=== PATIENT | female | born 1950 | race Caucasian/White ===

== ENCOUNTER 2024-02-27 08:38 | Outpatient (AMB) | payer MEDICARE, BC, SELFPAY ==
--- NOTE | 2024-02-27 09:09 | MHC.OFFWIV ---
Intake Vital Signs 02/27/24 09:11 Weight 101 lb BP 130/80 Blood Pressure Location Lt brachial Position Sitting Pulse 86 Pulse Source Pulse Oximeter Pulse Oximetry (%) 96 Oxygen Delivery Method Room Air Intake Visit Reasons: EP lower back pain Intake Note: Patient here for lower back pain after a fall last week. Patient Tobacco Use Status: Former Tobacco user Allergies NSAIDS (Non-Steroidal Anti-Inflamma Adverse Reaction (Intermediate, Verified 02/27/24 09:12) Hives Do you need a note to return to daycare/school/sports/work: No HPI EP lower back pain HPI Details This note is constructed using voice recognition software. While every effort has been made to ensure accuracy, background check coordinator errors may have been included. The patient is a 73 year old female who presents to the clinic today with sacral pain bilaterally after a fall last week going up the stairs landing on flat rocks. She denies numbness and tingling in her legs. She reports that the pain is worse in her sacrum when she is leaning forward. She has taken Tylenol with some effect as well as heat. She is unable to take NSAIDs due to allergies. She denies reduced range of motion. She is interested in physical therapy in the future, however is not yet established with her primary care provider. She has an appointment with her new primary in June. [facility] Social History Patient Tobacco Use Status: Former Tobacco user Review of Systems Const All systems reviewed & are unremarkable except as noted in HPI and below Physical Exam Vital Signs: Last Vital Signs Pulse 86 02/27/24 09:11 BP 130/80 02/27/24 09:11 Pulse Ox 96 02/27/24 09:11 Oxygen Delivery Method Room Air 02/27/24 09:11 Const General: cooperative, healthy appearing, comfortable, no acute distress and well developed Orientation/consciousness: patient oriented x3 Limitations: no limitations Resp Effort & Inspection: normal respiratory effort and able to speak in complete sentences Back/Spine/Pelvis Other: Tender to palpation in sacrum bilaterally. No erythema, ecchymosis. Full range of motion with the flexion. Negative SLR. Strength 5/5. Distal neurovascular exam intact. Skin General skin exam: no rashes or lesions noted Neuro General: patient oriented x3 Extrem General: Yes normal to inspection Assessment & Plan Assessment & Plan (1) Contusion of sacrum: Code(s): S30.0XXA - Contusion of lower back and pelvis, initial encounter Qualifiers: Encounter type: initial encounter Qualified Code(s): S30.0XXA - Contusion of lower back and pelvis, initial encounter Plan: X-ray ordered to evaluate given trauma in a postmenopausal female. Physical examination likely consistent with musculoskeletal strain. Discussed muscle relaxers versus trial of prednisone for anti-inflammatory effects. We will try a prednisone. Advised follow up as needed with worsening or failure to resolve. Plan See above for full details and plan. Orders: Orders XR sacrum coccyx min 2V Today S30.0XXA - Contusion of lower back and pelvis, initial encounter Medications: New prednisone 40 mg (2 x 20 mg) PO DAILY 6 tabs 0RF 3 days Coding Level of Care Code Est Pt Level 4 (37673) Diagnoses Contusion of sacrum, initial encounter S30.0XXA Encounter type: initial encounter
[2024-02-27 09:11] VITALS: BP 130/80; PULSE 86; O2SAT 96
== END 2024-02-27 10:01 | disposition home or self-care (01) ==
PROVIDERS: Visit Provider Registered Nurse
DX: S30.0XXA Contusion of lower back and pelvis, initial encounter (principal)

== ENCOUNTER → 2024-02-27 08:38 | Outpatient (BNVA) | payer MEDICARE, BC, SELFPAY | PROVIDERS: Visit Provider Registered Nurse ==

== ENCOUNTER 2024-02-27 09:36 | Outpatient (REF) | payer MEDICARE, BC, SELFPAY ==
--- NOTE | ~2024-02-27 | XR_ITS ---
EXAMINATION: XR SACRUM AND COCCYX CLINICAL INFORMATION: Contusion of lower back and pelvis COMPARISON: None available. TECHNIQUE: 2 views of the sacrum and 2 views of the coccyx were obtained. FINDINGS: There are no fractures. No bone, joint or soft tissue abnormality is demonstrated. Incidental note made of spondylosis of the partially visualized lumbosacral spine with a prominent degenerative disc changes and facet arthrosis at the L4 and L4-L5 level. Additional facet arthrosis noted at the L5-S1 level. XR/XR sacrum coccyx min 2V IMPRESSION: 1. No acute abnormality of the sacrum or coccyx. 2. Spondylosis of the partially visualized lumbosacral spine. Electronically signed by: Richard Smith MD 02/27/2024 03:27 PM EDT
== END 2024-02-27 09:37 | disposition home or self-care (01) ==
LOC: HO.HMGCX 09:36
PROVIDERS: Visit Provider Registered Nurse
DX: S30.0XXA Contusion of lower back and pelvis, initial encounter (principal)
CPT/HCPCS: 72220; 99212

== ENCOUNTER 2024-06-25 13:15 | Emergency (ER) | payer MEDICARE, SELFPAY ==
--- NOTE | ~2024-06-25 | CT_ITS ---
EXAMINATION: CT CERVICAL SPINE WITHOUT CONTRAST CLINICAL INFORMATION: Status post fall, unwitnessed. COMPARISON: None available. TECHNIQUE: Contiguous axial images through the cervical spine using 3 mm collimation with bone and soft tissue algorithm. Sagittal and coronal reformatted images acquired. This CT examination was performed using dose optimization techniques as appropriate, variously including the following: *Automated exposure control *Adjustment of mA and/or kV according to patient size (this includes techniques or standardized protocols for targeted exams where dose is matched to indication/reason for exam; i.e. extremities or head) *Use of iterative reconstruction technique DLP: 179.39 mGy centimeter. FINDINGS: Bone marrow inhomogeneity. Multilevel marginal osteophyte formation decreased intervertebral disc height, endplate sclerosis and subchondral cyst formation more conspicuous at C5-6 and to a lesser extent C3-4 C4-5 and C6-7 levels. Grade 1 anterolisthesis C3-4. Grade 1 retrolisthesis C5-6. There is a reverse curvature apex at C4-5 Craniocervical junction is intact. Degenerative changes in the periodontal C1 region. C1 is intact. C2 is intact. C3 is intact. C4 is intact. C5 is intact. C6 is intact. C7 is intact. No gross prevertebral compartment hematoma. Calcified plaques throughout the carotic artery system bilaterally as well as the subclavian arteries. Patchy attenuation right lung apex and to a lesser extent left lung apex. Secretions in the supraglottic. Irregular morphology of the right glottis/true vocal cord CT/CT cervical spine wo IV con IMPRESSION: No acute fracture or trauma-related listhesis. Multilevel cervical spondylosis resulting in [place] deformity. Atherosclerosis disease. Bilateral apical lung scarring. Osteopenia versus osteoporosis versus calcium metabolic disorder versus lymphoproliferative disorder. Secretions, supraglottic and abnormal right true vocal cord. Fleischner guidelines were followed. Electronically signed by: Jerry Laws MD 06/26/2024 08:24 AM [facility]
--- NOTE | ~2024-06-25 | CT_ITS ---
CLINICAL HISTORY: fall concern for rib fractures CT chest without contrast Comparison: None Findings: Acute right lateral 3rd, 4th, and 5th rib fractures are nondisplaced. Acute dorsal left 9th and 10th rib fractures are nondisplaced. Additional mild bilateral rib deformities appear old chronic Mild bibasilar atelectasis and scarring. No pneumothorax or pleural effusion. Additional scarring in the right lung apex with pleural extension. No mediastinal hematoma or significant pleural fluid. Vascular calcifications noted including coronary arteries. Imaged upper abdomen is unremarkable for noncontrast imaging. Soft tissue swelling including ventral soft tissues of the imaged right upper extremity. Acute comminuted fracture of the proximal right humerus with impaction of the major fracture fragments and medial displacement of the major fragment containing the diaphysis. Re-injury is considered given sclerosis of the multiple fragments. Large effusion of the right glenohumeral joint with mild-moderate osteoarthritis and without dislocation. Mild vertebral height losses with multifocal small Schmorl's nodes. IMPRESSION: 1. Acute comminuted proximal right humerus fracture. 2. Acute nondisplaced bilateral lower rib fractures. 3. Bibasilar atelectasis. This document has been electronically signed by: Mik Beauchamp MD on 06/25/2024 22:12:44
--- NOTE | ~2024-06-25 | XR_ITS ---
EXAMINATION: XR SHOULDER, RIGHT CLINICAL INFORMATION: fall, pain COMPARISON: None available. TECHNIQUE: Three views of the right shoulder. FINDINGS: There is an acute comminuted cortical disruption involving the greater tuberosity humeral head and neck. The clavicle is intact. The scapula appears intact. Traumatic deformities in the posterior lateral aspect of the ribs right upper hemithorax without gross callus formation. XR/XR shoulder RT min 2V IMPRESSION: Acute comminuted displaced fracture right humeral head and neck. Fractures posterior lateral ribs right upper hemithorax, probable old. Electronically signed by: Jerry Laws MD 06/25/2024 01:50 PM EST
--- NOTE | ~2024-06-25 | CT_ITS ---
EXAMINATION: CT HEAD WITHOUT CONTRAST CLINICAL INFORMATION: fall, unwitnessed COMPARISON: None available. TECHNIQUE: Contiguous axial imaging was performed from the skull base to vertex without intravenous administration of contrast. This CT examination was performed using dose optimization techniques as appropriate, variously including the following: *Automated exposure control *Adjustment of mA and/or kV according to patient size (this includes techniques or standardized protocols for targeted exams where dose is matched to indication/reason for exam; i.e. extremities or head) *Use of iterative reconstruction technique DLP: 581.37+ 10.25 mGy-cm FINDINGS: Bony calvarium is intact. Skull base is intact. Bone marrow inhomogeneity. No acute intracranial hemorrhage, mass effect, midline shift, hydrocephalus or herniation. Major-white matter differentiation is normal. Bilateral multifocal subtle patchy deep periventricular white matter hypodensity involving centrum semiovale and gonzales radiata. Old lacunar infarcts in the basal ganglia. Prominence of the extra-axial CSF spaces cerebral sulci and ventricles. Posterior cranial fossa contents demonstrated no acute intracranial hemorrhage or gross mass effect. Calcified plaques in the V4 segments of the vertebral arteries and the cavernous supraclinoid segments both ICA. Sellar/suprasellar region demonstrated. Focal 4 mm slightly hyperdense abnormality in the right sella. Craniocervical junction is intact with degenerative changes. 11 mm calcified pineal gland. Mucosal thickening in the paranasal sinuses more conspicuous in the ethmoid air cells. Tympanic cavities and mastoid air cells are aerated. No gross hematoma, intraconal or extraconal compartments of the orbits. CT/CT head/brain wo IV con IMPRESSION: No acute fracture, bony calvarium. No acute intracranial hemorrhage. Atherosclerosis disease, intracranial. Probable small vessel disease. Questionable 4 mm hyperdensity right sella. Electronically signed by: Jerry Laws MD 06/26/2024 08:17 AM [facility]
[2024-06-25 13:20] VITALS: BP 118/70; PULSE 88; O2SAT 99
--- NOTE | 2024-06-25 14:07 | ED.GENADULT ---
HPI - General Adult General Chief complaint: Fall Stated complaint: SLIP+FALL ON ICE,RT SHLDR PAIN,-THIN,-HESHAM,-LOC Time Seen by Provider: 06/25/24 22:19 Source: patient Mode of arrival: EMS Limitations: no limitations History of Present Illness ED Provider: HPI narrative: Apparently patient was walking outside tripped/slipped and fell tried to break the fall with right hand comes here with pain in the right shoulder no head injury no loss of consciousness no other injuries Related Data Home Medications ?Medication ?Instructions ?Recorded ?Confirmed atorvastatin 20 mg tablet 20 mg PO DAILY 02/27/24 levothyroxine 125 mcg capsule 125 mcg PO DAILY 02/27/24 losartan 25 mg tablet 25 mg PO DAILY 02/27/24 Previous Rx's ?Medication ?Instructions ?Recorded prednisone 20 mg tablet 40 mg (2 x 20 mg) PO DAILY 3 days 02/27/24 #6 tabs oxycodone 5 mg tablet 5 mg PO Q8-10H PRN pain #20 tabs 06/25/24 Allergies Allergy/AdvReac Type Severity Reaction Status Date / Time aspirin Allergy Hives Verified 06/25/24 14:08 NSAIDS (Non-Steroidal AdvReac Intermediate Hives Verified 06/25/24 14:08 Anti-Inflamma Review of Systems Review of Systems: Yes all other systems are reviewed and are negative PMFSH Social History Social History Patient Tobacco Use Status: Former Tobacco user Smoked in Last 30 Days: No Use of substances other than those prescribed or required for medical reasons: No Advance Directives: No Advance Directives Information Provided: Yes Do you have a plan to hurt others: No Plan Physical Exam ED Vital Signs: Vital Signs - 24 hr 06/25/24 14:08 06/25/24 21:53 06/25/24 21:53 Temperature 97.2 F 97.5 F 97.5 F Pulse Rate 71 83 80 Respiratory Rate 16 20 20 Blood Pressure 164/102 H 195/107 H 195/107 H Pulse Oximetry 98 94 94 Oxygen Delivery Method Room Air Room Air 06/25/24 23:12 Temperature 97.5 F Pulse Rate 80 Respiratory Rate 20 Blood Pressure 195/107 H Pulse Oximetry 94 Oxygen Delivery Method Room Air BMI result Body Mass Index 17.8 Appearance: Alert. Oriented X3. No acute distress. Eyes: PERRLA, No Nystagmus ENT: Pharynx normal. Oral Mucosa moist atraumatic normocephalic Neck: Normal inspection. Neck supple. No midline tenderness CVS: Normal heart rate and rhythm. Pulses normal. Respiratory: No respiratory distress. Equal air entry bilateral, no wheezing/rales/rhonchi no chest wall tenderness no rib tenderness Abdomen: Soft and nontender. Bowel sounds are present, no mass palpable, no CVA tenderness Skin: Skin warm and dry. Normal skin color. Normal skin turgor. Extremities: No lower extremity edema. No calf tenderness your right shoulder with swelling and tenderness of right humerus head neurovascular intact Neuro: Oriented X 3. No motor deficit. No sensory deficit.No cerebellar signs , cranial nerves II-XII intact Course Course Course Narrative: This is a rapid medical exam performed by Ramsey Montague NP: Additional HPI, ROS, PE not included below will be deferred to primary provider. Patient is a 74-year-old female presenting from [facility] with complaint of right shoulder, upper arm pain after a slip and fall on ice prior to arrival. Denies head strike, loss of consciousness. Not anticoagulated. Plan: xray Medications Administered Discontinued Medications Generic Name Dose Route Start Last Admin Trade Name Freq PRN Reason Stop Dose Admin Acetaminophen 650 mg 06/25/24 20:31 06/25/24 20:41 Acetaminophen 325 Mg Tablet PO 06/25/24 20:32 650 mg ONCE ONE Administration Oxycodone HCl 5 mg 06/25/24 22:44 06/25/24 23:16 Oxycodone Hcl Immed Release 5 Mg Tablet PO 06/25/24 22:45 5 mg ONCE ONE Administration Medical Decision Making Medical Decision Making [facility] Narrative: Patient's right humerus head fracture no other injuries CT of the head and C-spine negative Patient denied any pain in the ribs but CT scan showed rib fracture patient is just complaining of pain in the right shoulder area Differential Diagnosis Differential Diagnoses: The differential diagnosis associated with the presentation includes Independent Interpretation I performed an independent interpretation of an: CT Scan Interpretation: [address] [id number] [address] Scan Report Signed Patient: Marianela Yoder MR#: [id number] : 1950 Acct:[id number] Age/Sex: 74 / F ADM Date: 06/25/24 Loc: HO.ED Attending Dr: Ordering Physician: Nancy Irene DO Date of Service: 06/25/24 Procedure(s): CT chest wo IV con Accession Number(s): [id number] cc: Nancy Irene DO; Physician,Unknown ~ Report Number: [id number]: Total DLP = 205.00 mGy-cm CLINICAL HISTORY: fall concern for rib fractures CT chest without contrast Comparison: None Findings: Acute right lateral 3rd, 4th, and 5th rib fractures are nondisplaced. Acute dorsal left 9th and 10th rib fractures are nondisplaced. Additional mild bilateral rib deformities appear old chronic Mild bibasilar atelectasis and scarring. No pneumothorax or pleural effusion. Additional scarring in the right lung apex with pleural extension. No mediastinal hematoma or significant pleural fluid. Vascular calcifications noted including coronary arteries. Imaged upper abdomen is unremarkable for noncontrast imaging. Soft tissue swelling including ventral soft tissues of the imaged right upper extremity. Acute comminuted fracture of the proximal right humerus with impaction of the major fracture fragments and medial displacement of the major fragment containing the diaphysis. Re-injury is considered given sclerosis of the multiple fragments. Large effusion of the right glenohumeral joint with mild-moderate osteoarthritis and without dislocation. Mild vertebral height losses with multifocal small Schmorl's nodes. IMPRESSION: 1. Acute comminuted proximal right humerus fracture. 2. Acute nondisplaced bilateral lower rib fractures. 3. Bibasilar atelectasis. This document has been electronically signed by: Mik Beauchamp MD on 06/25/2024 22:12:44 Discharge Plan Discharge Clinical Impression: Closed right humeral fracture, Closed rib fracture Patient Disposition: Home, Self-Care Instructions: Arm Fracture in Adults (ED), Rib Fracture (ED), How to Use a Sling (ED) Additional Instructions: Wear the sling for support Oxycodone for severe pain Follow up with orthopedic You have right rib fractures report to the ER if increased shortness a breath or increased pain in the right ribs Prescriptions: New oxycodone 5 mg tablet 5 mg PO Q8-10H PRN (Reason: pain) Qty: 20 0RF Rx Instructions: Partial Fill upon patient request. No Action atorvastatin 20 mg tablet 20 mg PO DAILY losartan 25 mg tablet 25 mg PO DAILY levothyroxine 125 mcg capsule 125 mcg PO DAILY prednisone 20 mg tablet 40 mg PO DAILY 3 Days Qty: 6 0RF Print Language: Grenadian
[2024-06-25 14:08] VITALS: BP 164/102; PULSE 71; RESP 16; TEMP 36.2; O2SAT 98; BMI 17.8
[2024-06-25] MEDS: Acetaminophen 325 MG TABLET 650 MG PO (20:41)
[2024-06-25 21:53] VITALS: BP 195/107; PULSE 80; PULSE 83; RESP 20; TEMP 36.4; O2SAT 94
--- OUTSIDE RECORDS SUMMARY | 2024-06-25 22:14 | XMS_ITS | Clinical Summary ---
Author Organization [address] Address [address] [place] [id number] Phone Care Team Providers Care Hop Weigher Name Role Phone No, Pcp (Do Not Change Name) Primary Care Provid er Unavailable Allergies Active Allergy Reactions Criticality Noted Date Comments Nsaids (Non-Steroidal Anti-I nflammatory Drug) 07/30/2012 Medications levothyroxine (LEVOXYL) 150 MCG tablet Take 150 mcg by mouth daily. 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 Now with new primary buccal SCCA on the Right buccal mucosa. Social History Tobacco Use Types Packs/Day Years Used Date Smoking Tobacco: Former Alcohol Use Standard Drinks/Week Comments Yes 0 (1 standard drink = 0.6 oz pur e alcohol) Comments Unknown Sex and Gender Information Value Date Recorded Sex Assigned at Not on file Legal Sex Female 9:34 AM EST Gender Identity Not on file Sexual Orientation Not on file Last Filed Vital Signs Vital Sign Reading Time Taken Comments Blood Pressure 117/76 08/04/2014 12:58 PM EDT Pulse 87 08/04/2014 12:58 PM EDT Temperature 36.8 ??C (98.3 ??F) 07/30/2012 1:47 PM ED T Respiratory Rate - - Oxygen Saturation 98% 08/04/2014 12: 58 PM EDT Inhaled Oxygen Concentration - - Weight 50.3 kg (110 lb 12.8 oz) 015 12:58 PM EDT Height 162.6 cm (5' 4 ) 07/30/2012 1:47 PM EDT Body Mass Index 19.02 07/30/2012 1:47 PM EDT Plan of Treatment Health Maintenance Due Date Last Done Comments HIV screening 1962 Hepatitis C screening 1967 Lipid disorder screening 1989 Colon cancer screening, Colonoscopy 1994 Diabetes screening 1994 Shingles vaccine (Shingrix) (2 of 2 - Shingrix (RZV) 2 Dose Standard Series) 08/17/2019 06/18/2019 Influenza vaccine 12/05/2023 01/29/2022, , 01/20/2020, Additional history exists Covid-19 vaccine series ( season) 2024 01/05/2021, 06/18/2020, 05/21/2020 RSV Discussion (1 - 1-dose 75+ series) 2024 Tetanus adult (Td q 10,TDAP once) 11/30/2029 12/01/2019, 12/15/2009, 05/06/2002, Additional history exists Pneumococcal Vaccine (50+ years) Completed 12/06/2014, 05/03/2014 Osteoporosis screening (bone density) Completed 02/15/2022, 03/17/2020 Breast cancer screening Discontinued 05/16/19 24, 04/26/2022, 04/06/2021, Additional history exists Cervical cancer screening Discontinued Meningococcal Vaccine Aged Out No donnell jon eligible based on patient's age [place] [address] [facility] MEDICARE MEDICARE MEDICARE MEDICARE Care Teams Hop Weigher Relationship Specialty Start Date End Date No, Pcp (Do Not Change Name) PCP - General 07/30/12
[2024-06-25 23:12] VITALS: BP 195/107; PULSE 80; RESP 20; TEMP 36.4; O2SAT 94
[2024-06-25] MEDS: oxyCODONE HCl Immed Release 5 MG TABLET PO (23:16)
== END 2024-06-25 23:22 | disposition home or self-care (01) ==
PROVIDERS: Emergency Provider Internal Medicine
DX: S42.301A Unspecified fracture of shaft of humerus, right arm, initial encounter for closed fracture (principal); S22.31XA Fracture of one rib, right side, initial encounter for closed fracture; M54.2 Cervicalgia; R07.89 Other chest pain; R51.9 Headache, unspecified; M25.511 Pain in right shoulder; Y99.8 Other external cause status; W01.0XXA Fall on same level from slipping, tripping and stumbling without subsequent striking against object, initial encounter; Y93.01 Activity, walking, marching and hiking; Y92.9 Unspecified place or not applicable; Z79.899 Other long term (current) drug therapy
CPT/HCPCS: 70450; 71250; 72125; 73030; 99284; 99285

== ENCOUNTER → 2024-06-25 13:21 | Outpatient (BNV) | payer MEDICARE, BC, SELFPAY | PROVIDERS: Visit Provider Radiology Diagnostic Radiology | DX: M47.812 Spondylosis without myelopathy or radiculopathy, cervical region (principal); I67.2 Cerebral atherosclerosis | CPT/HCPCS: 70450; 72125 ==

== ENCOUNTER → 2024-08-05 14:48 | Outpatient (BNV) | payer MEDICARE, SELFPAY | PROVIDERS: Visit Provider Internal Medicine Medical Oncology | DX: Z85.528 Personal history of other malignant neoplasm of kidney (principal); Z85.819 Personal history of malignant neoplasm of unspecified site of lip, oral cavity, and pharynx | CPT/HCPCS: 99204 ==

== ENCOUNTER 2024-08-07 10:47 | Outpatient (AMB) | payer MEDICARE, BC, SELFPAY ==
[2024-08-07 10:57] VITALS: BP 130/80; PULSE 87; TEMP 36.6; O2SAT 97
--- NOTE | 2024-08-07 10:57 | AM.OFFWIN_ITS ---
Intake Vital Signs 3 08/07/24 10:57 Height 5 ft 3 in BP 130/80 Blood Pressure Location Lt brachial Position Sitting Pulse 87 Pulse Source Pulse Oximeter Temp 97.8 F Temp Source Oral Pulse Oximetry (%) 97 Oxygen Delivery Method Room Air Intake Visit Reasons: EP-rt hand 2nd finger infection Patient Tobacco Use Status: Former Tobacco user Allergies aspirin Allergy (Verified 08/07/24 10:57) Hives NSAIDS (Non-Steroidal Anti-Inflamma Adverse Reaction (Intermediate, Verified 08/07/24 10:57) Hives Do you need a note to return to daycare/school/sports/work: No HPI EP-rt hand 2nd finger infection 2 HPI0 Details Patient is a 74-year-old female comes to the walk-in clinic complaining of likely infection to her right 4th finger. She has a chronic history of having cuticles that she bites, and pulls off. She reports that she frequently will get inflammation and redness to the area, and sometimes they will look infected. She puts topical ointment on them, and this usually clears them up. However, this last flare up has occurred to her right 4th finger tip, around the base of the fingernail. has been pretty persistent for about a month now, and despite keeping it clean covered and dry and using the topical Neosporin, she now has bumps encircling the tip of the finger, that are sore, and red and swollen surrounding. She denies fever or chills, nausea vomiting or diarrhea, headache or dizziness, or other significant associated symptoms. She is not taking Tylenol or ibuprofen for pain or fever. [facility] Medical History Essential hypertension Malignant tumor of kidney Seasonal affective disorder Malignant neoplasm of buccal mucosa Postoperative hypothyroidism Surgical History H/O partial nephrectomy H/O exploratory laparotomy H/O myomectomy History of laparoscopy-assisted vaginal hysterectomy Family History Sister Bipolar disorder Schizophrenia Maternal Grandfather Lung cancer Sister No problems noted. Mother Depressive disorder Brother Depressive disorder Father Cerebral hemorrhage Social History Household Members: None Patient Tobacco Use Status: Former Tobacco user Tobacco use type: Cigarette service: No Current occupational status: retired Review of Systems Const All systems reviewed & are unremarkable except as noted in HPI and below Physical Exam Vital Signs: Last Vital Signs Temp 97.8 F 08/07/24 10:57 Pulse 87 08/07/24 10:57 BP 130/80 08/07/24 10:57 Pulse Ox 97 08/07/24 10:57 Oxygen Delivery Method Room Air 08/07/24 10:57 Skin Lesions: other (Patient has vesicular lesions to the right 4th finger) Extrem Hand/finger images: 2 1. vescicular lesions with surrounding erythema, mild tenderness to the touch. No warmth to the area, or surrounding edema. 2. Assessment & Plan Assessment & Plan (1) Paronychia of finger: Code(s): L03.019 - Cellulitis of unspecified finger Qualifiers: Laterality: right Qualified Code(s): L03.011 - Cellulitis of right finger (2) Abscess of finger: Code(s): L02.519 - Cutaneous abscess of unspecified hand Qualifiers: Laterality: right Qualified Code(s): L02.511 - Cutaneous abscess of right hand Plan Patient with recurrent paronychia is due to cuticle manipulation. She has developed what looks to be an erythematous inflamed inflammatory paronychia, along with 2 abscesses and circling the fingertip. Not sure if they are bacterial or viral in nature, but I will start her on a course of Keflex and I advised her to take a probiotic along with the antibiotic. He abscesses were incised and drained, and swabs of the drainage was sent out for culture, both bacterial and viral. She was also advised to monitor and follow up if it is not improving, or if it worsens. She knows to go to the emergency department with worrisome symptoms. Orders: Orders 2 Routine Culture w Gram Stain 08/07/24 L02.519 - Cutaneous abscess of unspecified hand, L03.019 - Cellulitis of unspecified finger Viral Culture 08/07/24 L02.519 - Cutaneous abscess of unspecified hand, L03.019 - Cellulitis of unspecified finger Medications: New 2 cephalexin 500 mg PO QID 40 caps 0RF 10 days Coding Level of Care Code Est Pt Level 4 (85366) Diagnoses Paronychia of finger of right hand L03.011 Laterality: right Abscess of finger of right hand L02.511 Laterality: right
--- OUTSIDE RECORDS SUMMARY | 2024-08-07 12:27 | XMS_ITS | Clinical Summary ---
Author Organization [address] Address [address] [place] [phone] Phone Care Team Providers Care Solderer Assembler Name Role Phone No, Pcp (Do Not [...] (RZV) 2 Dose Standard Series) 08/17/2019 06/18/2019 Covid-19 vaccine series ( season) 2024 01/05/2021, 06/18/2020, 05/21/2020 RSV Immunization (1 - 1-dose 75+ series) 2024 Influenza vaccine 01/04/2025 01/29/2022, , 01/20/2020, Additional history exists Tetanus adult (Td q 10,TDAP once) 11/30/2029 12/01/2019, 12/15/2009, 05/06/2002, Additional history exists Pneumococcal Vaccine (50+ years) Completed 12/06/2014, 05/03/2014 Osteoporosis screening (bone density) Completed 02/15/2022, 03/17/2020 Breast cancer screening Discontinued 05/16/19 24, 04/26/2022, 04/06/2021, Additional history exists Cervical cancer screening Discontinued Meningococcal Vaccine Aged Out No donnell jon eligible based on patient's [place] [address] [facility] MEDICARE MEDICARE MEDICARE MEDICARE Care Teams Solderer Assembler Relationship Specialty Start Date End Date No, Pcp (Do Not Change Name) PCP - General 07/30/12
== END 2024-08-07 11:42 | disposition home or self-care (01) ==
PROVIDERS: Visit Provider Physician Assistant Medical
DX: L03.011 Cellulitis of right finger (principal); L02.511 Cutaneous abscess of right hand

== ENCOUNTER 2024-08-07 10:47 | Outpatient (REF) | payer MEDICARE, BC, SELFPAY ==
--- OUTSIDE RECORDS SUMMARY | 2024-08-07 15:04 | XMS_ITS | Clinical Summary ---
Author Organization [address] Address [address] [place] [phone] Phone Care Team Providers Care Hemotherapist Name Role Phone No, Pcp (Do Not [...] age [place] [address] [facility] MEDICARE MEDICARE MEDICARE MEDICARE Care Teams Hemotherapist Relationship Specialty Start Date End Date No, Pcp (Do Not Change Name) PCP - General 07/30/12
[2024-08-17 14:49] LABS: Varicella Zoster Rapid Culture NOT ISOLATED; Varicella Zoster Source SWAB
== END 2024-08-07 10:48 | disposition home or self-care (01) ==
LOC: HO.LNP 10:47
PROVIDERS: Visit Provider Physician Assistant Medical
DX: L03.011 Cellulitis of right finger (principal); L02.511 Cutaneous abscess of right hand
CPT/HCPCS: 10060; 87070; 87077; 87205; 87252; 87254; 99212

== ENCOUNTER 2025-01-16 11:09 | Emergency (ER) | payer MEDICARE, BC, SELFPAY ==
--- NOTE | ~2025-01-16 | CT_ITS ---
CLINICAL HISTORY: head strike, fall CT head without contrast Comparison: CT/SR - HEAD HEAD_CSPINE (ADULT) - 06/25/24 16:53 EST Findings: Involutional change and nonspecific white matter hypodensity. No intracranial mass, midline shift, hydrocephalus, or acute hemorrhage. Orbits, paranasal sinuses, and mastoid air cells are unremarkable. No skull fracture Impression: 1. No acute findings This document has been electronically signed by: Tamara Hammond MD on 01/16/2025 12:50:06
--- NOTE | ~2025-01-16 | XR_ITS ---
CLINICAL HISTORY: weakness 2 view chest x-ray Comparison: CT/SR - CT CHEST WO IV CON - 06/25/24 21:35 EST Findings: There is a bandlike opacity within the right middle lobe. Left lung is clear. There is no pleural effusion. Heart size is normal. Chronic deformity of the right humeral head. No acute displaced fracture. IMPRESSION: There is a bandlike focus of atelectasis within the right middle lobe. This document has been electronically signed by: Tamara Hammond MD on 01/16/2025 12:36:42
--- NOTE | ~2025-01-16 | CT_ITS ---
CLINICAL HISTORY: head strike, fall CT cervical spine without contrast Comparison: CT/SR - HEAD HEAD_CSPINE (ADULT) - 06/25/24 16:53 EST Findings: Trace anterolisthesis of C3 on C4, similar to the prior study. Reversal of lordosis, similar to the prior study. Multilevel degenerative disc disease and facet osteoarthritis. No significant central canal stenosis. No acute fractures or dislocations. No acute findings on limited view of the intracranial contents. Soft tissues of the neck are normal. There is scarring at the bilateral lung apices. IMPRESSION: No acute cervical spine fracture. This document has been electronically signed by: Tamara Hammond MD on 01/16/2025 12:45:59
--- NOTE | ~2025-01-16 | XR_ITS ---
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 Mild arthritic change. Soft tissues are unremarkable. IMPRESSION: 1. No acute findings. This document has been electronically signed by: Tamara Hammond MD on 01/16/2025 13:31:35
[2025-01-16 11:14] VITALS: BP 190/102; PULSE 89; RESP 18; TEMP 36.7; O2SAT 96; BMI 16.2
--- NOTE | 2025-01-16 11:15 | ED.GENADULT ---
HPI - General Adult General Chief complaint: Fall Stated complaint: fall head inj Time Seen by Provider: 01/16/25 11:31 History of Present Illness ED Provider: Silvano Trujillo MD HPI narrative: Marianela is a pleasant 74-year-old female who reports a history of oral cancer, kidney cancer with a partial nephrectomy in the past, hypothyroid due to radiation, who is in a senior care community she tells me she syncopized she does not recall the event but she was in her bathroom she awoke with some mild pain in the left posterior back and a small laceration of the superior forehead this was over 4 days ago. She got herself up and was able to clean herself off and did not seek medical care until now. But she says since that time she has felt slightly off balance mild pain in the left lump lumbosacral let/posterior hip region but she has been able to ambulate. Denies abdominal pain chest pain difficulty breathing. She denies headache or neck pain focal neurologic symptoms. She has a baseline asymmetry of her face due to the prior oral surgery/neck dissection which was remotely she does not feel this is abnormal at all. She feels slightly dry in the oral mucosa and has decreased appetite since the time. Related Data Home Medications ?Medication ?Instructions ?Recorded ?Confirmed atorvastatin 20 mg tablet 20 mg PO DAILY 02/27/24 11/05/24 losartan 25 mg tablet 25 mg PO DAILY 02/27/24 11/05/24 fluoxetine 20 mg tablet 20 mg PO DAILY 08/05/24 11/05/24 levothyroxine 125 mcg tablet 125 mcg PO DAILY 08/07/24 11/05/24 Allergies Allergy/AdvReac Type Severity Reaction Status Date / Time aspirin Allergy Hives Verified 01/16/25 11:15 NSAIDS (Non-Steroidal AdvReac Intermediate Hives Verified 01/16/25 11:15 Anti-Inflamma PMFSH Past Medical History Medical History Essential hypertension Malignant tumor of kidney Seasonal affective disorder 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 Mother Depressive disorder Brother Depressive disorder Father Cerebral hemorrhage Social History Social History Household Members: None Patient Tobacco Use Status: Former Tobacco user Tobacco use type: Cigarette Advance Directives: Yes Advance Directives Information Provided: No Advance Directives on File: No Do you have a plan to hurt others: No Plan service: No Current occupational status: retired Physical Exam ED Exam Exam: EXAM: Gen: Alert, awake, frail thin-appearing dry oral mucosa not toxic or ill Head: Atraumatic Eyes: Anicteric, Normal conjunctiva. ENT: Dry oral mucosa Neck: Supple. Prior right-sided neck dissection scar Skin: ?No observable rash or bruising on exposed or examined skin 3 mm healing laceration with surrounding ecchymosis superior medial forehead Respiratory: Breathing comfortably, No distress.Clear to auscultation bilaterally, symmetric chest expansion, No wheeze, rales, ronchi. Cardiovascular: Regular rate and rhythm. No murmurs or rub. Well perfused periphery, warm extremities. No edema. ? Abdominal: No focal tenderness. Soft, no objective distension. No palpable masses or obvious organomegaly. ?No guarding, no rebound tenderness or other peritoneal findings. : No flank tenderness. Neuro: Alert. Gross movement of all extremities intact. ? Psych: Calm. Cooperative. MSK: No grossly visible deformity. Mild tenderness left lumbosacral area without step-off or overlying skin changes. No midline back tenderness. Joints full range of motion without bony deformity though they are thin. They are well-perfused. Vital signs: See flowsheet Vital Signs: Vital Signs - 24 hr 01/16/25 11:14 01/16/25 13:11 Temperature 98.1 F 97.9 F Pulse Rate 89 83 Respiratory Rate 18 17 Blood Pressure 190/102 H 228/130 H Pulse Oximetry 96 96 Oxygen Delivery Method Room Air Room Air BMI result Body Mass Index 16.2 Course Course Course Narrative: Rapid medical examination performed in triage by Gail Diggs PA-C. Patient is a 74 year old assigned female at presenting to the emergency department with dizziness, headache after a fall 4 days ago. Patient states that 4 days ago she fell and is not sure what happened or how. Detailed physical exam and review of systems are deferred to the office clinician. EKG, labs, imaging, swabs ordered. Patient placed back in the waiting room pending room availability and results. Medications Administered Discontinued Medications Generic Name Dose Route Start Last Admin Trade Name [place] PRN Reason Stop Dose Admin Hydralazine HCl 25 mg 01/16/25 13:16 01/16/25 13:22 Hydralazine Hcl 25 Mg Tablet PO 01/16/25 13:17 25 mg ONCE ONE Administration Protocol Sodium Chloride 1,000 mls @ 999 mls/hr 01/16/25 12:30 01/16/25 14:10 Ns IV 01/16/25 13:30 Infused .Q1H1M DANIEL Infusion Losartan Potassium 25 mg 01/16/25 13:16 01/16/25 13:21 Losartan Potassium 25 Mg Tablet PO 01/16/25 13:17 25 mg ONCE ONE Administration Protocol Medical Decision Making Medical Decision Making MDM Narrative: Medical Decision Makin-year-old female presents for subjective unsteady gait after a fall 4 days ago. She did not seek medical care after that time. She has decreased oral appetite looks frail slightly dehydrated but not ill or toxic. She is afebrile has stable vital signs aside from moderate hypertension. No injuries on imaging. Pt ambulated in ED well at baseline. Hydrated IV due , she was dehydrated. Preliminary Favored Differential Diagnosis: head/neck/pelvic injury, dehydration, vasovagal, orthostasis, deconditioning, micturation syncope among additional considered etiologies Testing Interpreted Independently: ?See below for details Radiology or Lab testing Results Reviewed: ?See below for details Consults: ?See below for details Independent Historians/External Chart Reviews: ?See below for details Social Determinants of Health Impacting MDM/Planning: ?See below for details Lab Data 01/16/25 11:58 01/16/25 11:58 Labs: Lab Results 01/16/25 01/16/25 Range/Units 11:58 14:08 WBC 6.0 (4.8-10.8) X10*3/uL RBC 3.97 L (4.20-5.50) X10*6/uL Hgb 11.9 L (12.0-16.0) g/dl Hct 34.8 L (37.0-47.0) % MCV 87.7 (80.0-98.0) fL MCH 30.0 (27.0-33.0) pg MCHC 34.2 (31.0-35.0) g/dl RDW 13.9 (11.0-16.0) % Plt Count 205 (160-400) X10*3/uL MPV 8.5 L (9.4-12.3) fL Immature Gran % (Auto) 0.3 (0.0-0.4) % Neut % (Auto) 71.3 (45-73) % Lymph % (Auto) 16.3 L (20-40) % [place] % (Auto) 10.5 (2-11) % Eos % (Auto) 1.3 (0-4) % Baso % (Auto) 0.3 (0-2) % Lymph # (Auto) 1.0 L (1.2-4.9) X10*3/uL [place] # (Auto) 0.6 (0.1-1.2) X10*3/uL Eos # (Auto) 0.1 (0.0-0.4) X10*3/uL Baso # (Auto) 0.0 (0.0-0.2) X10*3/uL Abs Immat Gran (auto) 0.02 (0.00-0.03) X10*3/uL Absolute Neuts (auto) 4.3 (2.0-8.3) x10*3/uL Absolute Nucleated RBC 0.000 (0.0-0.012) X10*3/uL Nucleated RBC % (auto) 0.0 (0.0-0.2) /100WBC Sodium 135 (135-145) mmol/L Potassium 4.0 (3.3-5.1) mmol/L Chloride 98 (96-108) mmol/L Carbon Dioxide 27 (22-29) mmol/L Anion Gap 14 (12-20) BUN 11 (9-16) mg/dL Creatinine 0.67 (0.5-1.4) mg/dL Estim Creat Clear Calc 47.5 Estimated GFR > 60 Random Glucose 86 (60-115) mg/dL Calcium 9.9 D (8.4-10.2) mg/dL Magnesium 2.1 (1.6-2.6) mg/dL Total Bilirubin 0.5 (0.0-1.0) mg/dL AST 24 (5-31) U/L ALT 15 (0-31) U/L Alkaline Phosphatase 70 (39-117) U/L Troponin I High Sens < 2.7 (<3.5-17.0) ng/L Total Protein 7.2 (6.5-8.0) g/dL Albumin 4.3 (3.5-5.0) g/dL TSH 0.65 (0.32-4.0) uIU/mL Urine Color Yellow Urine Appearance Clear Urine pH 7.0 (5.0-9.0) Ur Specific [place] <= 1.005 (1.005-1.025) Urine Protein Negative (Neg-Trace) mg/dL Urine Glucose (UA) Negative (Negative) mg/dL Urine Ketones Negative (Negative) mg/dL Urine Blood Negative (Negative) Urine Nitrite Negative (Negative) Ur Leukocyte Esterase Negative (Negative) COVID-19 (CHUN) Negative (Negative) COVID-19 Clin Com See Note Influenza Type A (JEFFREY) Negative (Negative) Influenza Type B (JFEFREY) Negative (Negative) Influenza A & B Note See Note Independent Interpretation I performed an independent interpretation of an: EKG (sinus, non ischemic, no RV strain) Radiology Impression Discussion of test interpretation with radiology: I have reviewed the radiologist's reading. Independent Historian Clinical information obtained from an independent historian. History obtained from or confirmed by: Other (family - brother) Discharge Plan Discharge Clinical Impression: Acute dehydration, Bruising Patient Disposition: Home, Self-Care Instructions: Dehydration (DC) Additional Instructions: DISCHARGE DIAGNOSES: Bruising and small forehead laceration healing has started already Dehydration Chronic depression HISTORY OF PRESENTATION: ?Fall 4 days ago EMERGENCY DEPARTMENT COURSE,TESTS, TREATMENTS: While in the ED today you were evaluated and examined thoroughly for a fall feeling lightheaded decreased appetite. You had reassuring lab work including blood chemistries electrolytes blood counts. You had a CT head of and cervical spine CT without traumatic injuries. You had a chest x-ray and pelvic x-ray without bony injuries You received intravenous hydration. DISCHARGE MEDICATIONS: ?[We have made no changes to your regular medication regimen] FOLLOW-UP: ?Call your primary or general physician soon as possible to discuss your symptoms, your ED visit and to discuss follow up plans Call your primary doctor follow up we also strongly recommend you follow up with your psychiatrist or behavioral health team to address your chronic depression you denied being suicidal today but if that changes you can return at anytime or call 9 1 INSTRUCTIONS ?& RETURN PRECAUTIONS: If any symptoms change first call your primary physician, if it is after-hours your primary doctors office should have a provider work and family life consultant you can speak with. If the symptoms are severe or very concerning to you then call 911 or return to the ED. You were seen in our Emergency Department today for treatment of a behavioral health issue. It is important after your visit that you follow up with either your behavioral health provider or a primary care doctor within 7 days.? If you have trouble finding a therapist you can reach out to [place] [phone] The National Suicide and Crisis Lifeline can be reached 7 days a week 24 hours a day.? Call 988 to speak with someone.? Return for any worsening symptoms or concerns such as thoughts of self harm or harm to others. Please call 911 if you feel your mental health is worsening.? Silvano Trujillo MD Emergency Physician [facility] Prescriptions: No Action fluoxetine 20 mg Tablet 20 mg PO DAILY levothyroxine 125 mcg tablet 125 mcg PO DAILY atorvastatin 20 mg tablet 20 mg PO DAILY losartan 25 mg tablet 25 mg PO DAILY Interventions: ED Discharge Assessment Last Done: 01/16/25 14:53 Discharge Date/Time: 01/16/25 14:55 Print Language: Georgian
--- NOTE | 2025-01-16 11:16 | ECG_ITS ---
Test Reason : WEAKNESS Blood Pressure : */* mmHG Vent. Rate : 87 BPM Atrial Rate : 87 BPM P-R Int : 140 ms QRS Dur : 76 ms QT Int : 354 ms P-R-T Axes : 78 20 69 degrees QTcB Int : 425 ms Normal sinus rhythm Minimal voltage criteria for LVH, may be normal variant ( Sokolow-Bermeo ) Borderline ECG No previous ECGs available Referred By: Gail Diggs Electronically Signed By: MATHIEU GRULLON MD
--- OUTSIDE RECORDS SUMMARY | 2025-01-16 11:45 | XMS_ITS | Encounter Summary ---
Author Organization [facility] Address [address] [facility] [address] [facility] [address] [place] [phone] Phone Care Team Providers Care Invasive Cardiologist Name Role Phone Pcp, Unknown Primary Care Provider Unavailabl e Encounter Details Date Type Department Care Team (Latest Contact Info) Description 11/11/2024 Transcribe Orders Virtual Department [address] [place] [address] Vinh Pimentel MD [address] [place] [phone] [email or web address] Age-related osteoporosis without current pathological fracture (Primary Dx) Social History Tobacco Use Types Packs/Day Years Used Date Smoking Tobacco: Never Assessed Education Answer Date Recorded Are you interested in more education? Not on sami e 01/17/2024 Are you concerned about learning? Not on file 01/17/2024 No 01/17/2024 No 01/17/2024 Digital Access Answer Date Recorded No 01/17/2024 No 01/17/2024 Reliable internet access at home? Not on file 01/17/2024 Device with a working camera? Not on file Comments Unknown Sex and Gender Information Value Date Recorded Sex Assigned at Not on file Legal Sex Female 9:52 AM EDT Gender Identity Not on file Sexual Orientation Not on file documented as of this encounter Plan of Treatment Upcoming Encounters Date Type Department Care Team ( Contact Info) Description 01/26/2025 9:00 AM EDT Office Visit [facility] [address] [place] [address] Whitney Saul [address] [facility] [place] [address] [email or web address] 03/01/2025 7:00 PM EDT Appointment [facility], Bone Density - [address] [address] Vinh Pimentel MD [address] [place] [phone] [email or web address] Scheduled Orders Name Type Priority Associated Diagnoses Orde r Schedule DXA Screening Imaging Routine Age-related osteoporosis without current pathological fracture Expected: 12/11/2024, Expires: 11/11/2025 documented as of this encounter Visit Diagnoses Diagnosis Age-related osteoporosis without current pathological fracture- Primary documented in this encounter Care Teams Invasive Cardiologist Relationship Specialty Start Date End Date Pcp, Unknown PCP - General 01/17/24 documented as of this encounter Additional Source Comments The information contained in this document represents components of the legal health record. It is not the complete legal health record.[facility]
--- OUTSIDE RECORDS SUMMARY | 2025-01-16 11:45 | XMS_ITS | Clinical Summary ---
Author Organization [address] Address [address] [place] [phone] Phone Care Team Providers Care Chemist Steroids Name Role Phone No, Pcp (Do Not Change Name) Primary Care Provid er Unavailable Allergies Active Allergy Reactions Criticality Noted Date Comments Nsaids (Non-Steroidal Anti-I nflammatory Drug) 07/30/2012 Medications levothyroxine (LEVOXYL) 150 MCG tablet Take 150 mcg by mouth daily. 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 Overview (07/30/2012): Originally disgnosed 1996, resected [...] 87 08/04/2014 12:58 PM EDT Temperature 36.8 C (98.3 F) 07/30/2012 1:47 PM EDT Respiratory Rate - - Oxygen Saturation 98% [...] (RZV) 2 Dose Standard Series) 08/17/2019 06/18/2019 RSV Immunization (1 - 1-dose 75+ series) 2024 Covid-19 vaccine series ( season) 2025 01/05/2021, 06/18/2020, 05/21/2020 Influenza vaccine 01/04/2025 01/29/2022, , 01/20/2020, Additional history exists Tetanus adult (Td q 10,TDAP once) 11/30/2029 12/01/2019, 12/15/2009, 05/06/2002, Additional history exists Pneumococcal Vaccine (50+ years) Completed 12/06/2014, 05/03/2014 Osteoporosis screening (bone density) Completed 02/15/2022, 03/17/2020 Breast cancer screening Discontinued 05/16/19 24, 04/26/2022, 04/06/2021, Additional history exists Cervical cancer screening Discontinued Meningococcal B Vaccine Aged Out No l onger eligible based on patient's age to complete this topic Meningococcal Vaccine Aged Out No donnell jon eligible based on patient[place] [address] [facility] MEDICARE MEDICARE [facility] MEDICARE MEDICARE Care Teams Chemist Steroids Relationship Specialty Start Date End Date No, Pcp (Do Not Change Name) PCP - General 07/30/12
--- OUTSIDE RECORDS SUMMARY | 2025-01-16 11:45 | XMS_ITS | Clinical Summary ---
Author Organization [facility] Address [address] [facility] [address] [place] [phone] Phone Care Team Providers Care Parts Facilitator Name Role Phone Pcp, Unknown Primary Care Provider Unavailabl e Encounters Date Type Department Care Team Description 11/11/2024 Transcribe Orders Virtual Department [address] [place] [address] Vinh Pimentel MD Age-related osteoporosis without current pathological fracture (Primary Dx) from Last 3 Months Social History Tobacco Use Types Packs/Day Years [...] on file Sexual Orientation Not on file Plan of Treatment Upcoming Encounters Date Type Department Care Team (Late st Contact Info) Description 01/26/2025 9:00 AM EDT Office Visit [facility] Medicine [address] [place] [address] [place] [address] Whitney Saul [address] [facility], [address] [place] [address] [email or web address] 03/01/2025 7:00 PM EDT Appointment [facility], Bone Density - [address] [address] Vinh Pimentel MD [address] [place] [place] [id number] Health Maintenance Due Date Last Done Comments Adult Td,Tdap Booster 1950 LIPID PANEL 1949 DEPRESSION SCREENING 1961 SMOKING Hx and SMOKELESS TOB ACCO SCREENING 1962 HEPATITIS C SCREENING 1967 COLOGUARD 1994 COLONOSCOPY 1994 COLORECTAL CANCER SCREENING 1994 FIT TEST 1994 FOBT 1994 SIGMOIDOSCOPY 1994 VIRTUAL COLONOSCOPY 1994 PNEUMOCOCCAL VACCINES (50+ y ears) (1 of 1 - PCV) 1999 ZOSTER VACCINES (1 of 2) 1999 OSTEOPOROSIS SCREENING INITI AL (ONE-TIME) 2014 RSV VACCINE (1 - 1-dose 75+ series) 2024 INFLUENZA VACCINE (#1) 2024 COVID-19 VACCINE (1 - 2023-2 5 season) 2025 HEPATITIS A VACCINES Aged Out No long er eligible based on patient's age to complete this topic HIB VACCINES Aged Out No longer eligi ble based on patient's age to complete this topic MENINGOCOCCAL VACCINES (ACWY) Aged Out No longer eligible based on patient's age to complete this topic MENINGOCOCCAL VACCINES (B) Aged Out N o longer eligible based on patient's age to complete this topic Medical Devices Not on file Insurance MEDICARE PART A & B [employer] OUT OF STATE INDEMNITY MEDICARE PART A & B [facility] OUT [facility] INDEMNITY MEDICARE PART A & B [employer] OUT OF STATE INDEMNITY MEDICARE PART A & B [employer] OUT OF STATE INDEMNITY MEDICARE PART A & B MEDICARE PART A & B [facility] Care Teams Parts Facilitator Relationship Specialty Start Date End Date Pcp, Unknown PCP - General 01/17/24 Additional Source Comments The information contained in this document represents components of the legal health record. It is not the complete legal health record.[facility]
[2025-01-16 12:02] LABS: MANUAL DIFF FLAG NO
[2025-01-16 12:03] LABS: Hematocrit 34.8 % (37.0-47.0); Hemoglobin 11.9 g/dl (12.0-16.0); Imm Gran Abs Auto 0.02 X10*3/uL (0.00-0.03); Imm Gran Pct Auto 0.3 % (0.0-0.4); Lymphocytes Absolute Auto 1.0 X10*3/uL (1.2-4.9); Mean Corpuscular HGB Conc 34.2 g/dl (31.0-35.0); Mean Corpuscular Hemoglobin 30.0 pg (27.0-33.0); Mean Corpuscular Volume 87.7 fL (80.0-98.0); NRBC Abs Auto 0.000 X10*3/uL (0.0-0.012); NRBC Pct Auto 0.0 /100WBC (0.0-0.2); Platelet Count 205 X10*3/uL (160-400); Red Blood Count 3.97 X10*6/uL (4.20-5.50); White Blood Count 6.0 X10*3/uL (4.8-10.8)
[2025-01-16 12:16] LABS: Alanine Aminotransferase 15 U/L (0-31); Albumin Level 4.3 g/dL (3.5-5.0); Alkaline Phosphatase 70 U/L (39-117); Anion Gap 14 (12-20); Aspartate Amino Transferase 24 U/L (5-31); Blood Urea Nitrogen 11 mg/dL (9-16); Calcium 9.9 mg/dL (8.4-10.2); Carbon Dioxide 27 mmol/L (22-29); Chloride 98 mmol/L (96-108); Creatinine Clr Calc Pharmacy 47.5; Estimated Glomerular Filt Rate > 60; Magnesium 2.1 mg/dL (1.6-2.6); Potassium 4.0 mmol/L (3.3-5.1); Sodium 135 mmol/L (135-145); Total Protein 7.2 g/dL (6.5-8.0)
--- NOTE | 2025-01-16 12:16 | PC.NURSE ---
IV established, labs obtained and sent. awaiting ct/xray. patient reports that she feels unsteady when ambulating. call lopez within reach
[2025-01-16 12:23] LABS: COVID-19 Test Negative (Negative); IDNOW Serial# 55D5AD1C; IDNOW Serial# 58CA691E; Influenza B2 Negative (Negative)
[2025-01-16 12:31] LABS: Troponin-I High Sensitivity < 2.7 ng/L (<3.5-17.0)
[2025-01-16 13:11] VITALS: BP 228/130; PULSE 83; RESP 17; TEMP 36.6; O2SAT 96
[2025-01-16 13:47] LABS: Thyroid Stimulating Hormone 0.65 uIU/mL (0.32-4.0)
[2025-01-16 14:15] LABS: Appearance Urine Clear; Glucose Urine UA Negative (Negative); PH 7.0 (5.0-9.0); Specific Gravity - Urine <= 1.005 (1.005-1.025)
[2025-01-16 14:20] VITALS: BP 143/90
[2025-01-16 14:53] VITALS: BP 143/90; PULSE 83; RESP 18; TEMP 36.6; O2SAT 96
== END 2025-01-16 14:55 | disposition home or self-care (01) ==
PROVIDERS: Physician Assistant Medical; Emergency Provider Emergency Medicine
DX: E86.0 Dehydration (principal); R58 Hemorrhage, not elsewhere classified; R53.1 Weakness; F32.A Depression, unspecified; S01.81XA Laceration without foreign body of other part of head, initial encounter; W19.XXXA Unspecified fall, initial encounter; Y93.9 Activity, unspecified; Y92.9 Unspecified place or not applicable; Y99.9 Unspecified external cause status; E89.0 Postprocedural hypothyroidism; M25.559 Pain in unspecified hip; M54.50 Low back pain, unspecified; I10 Essential (primary) hypertension; R42 Dizziness and giddiness; R26.81 Unsteadiness on feet; Z79.899 Other long term (current) drug therapy
CPT/HCPCS: 36415; 70450; 71046; 72125; 72170; 80053; 81003; 83735; 84443; 84484; 85025; 87502; 87635; 93005; 96360; 99285

== ENCOUNTER → 2025-01-16 11:16 | Outpatient (BNV) | payer MEDICARE, BC, SELFPAY | PROVIDERS: Emergency Provider Emergency Medicine; Visit Provider Internal Medicine Cardiovascular Disease | DX: R53.1 Weakness (principal) | CPT/HCPCS: 93010 ==

== ENCOUNTER → 2025-01-16 11:16 | Outpatient (BNV) | payer MEDICARE, BC, SELFPAY | PROVIDERS: Emergency Provider Emergency Medicine; Visit Provider Radiology Diagnostic Radiology | DX: S09.90XA Unspecified injury of head, initial encounter (principal); R53.1 Weakness; M53.3 Sacrococcygeal disorders, not elsewhere classified; W19.XXXA Unspecified fall, initial encounter | CPT/HCPCS: 70450; 71046; 72125; 72170 ==